=== PATIENT | male | born 1960 | race Caucasian/White ===

== ENCOUNTER 2020-11-07 19:38 | Emergency (ER) | payer MEDICARE ==
[2020-11-07 21:30] LABS: BASOPHIL 0.7 % (0-2); EOSINOPHIL 1.8 % (0-5); HCT 42.1 % (42.0-52.0); HGB 13.8 g/dl (13.2-18.0); LYMPHOCYTE 36.9 % (15-48); MCH 29.7 pg (25.0-31.0); MCHC 32.8 g/dL (32.0-36.0); MCV 90.5 fL (78.0-100.0); MONOCYTE 6.4 % (0-12); MPV 8.2 fL (6.0-9.5); NRBC 0; PLT 266 K/uL (150-400); RBC 4.65 M/uL (4.70-6.00); RDW 12.7 % (11.5-14.0); WBC 5.7 K/uL (4.0-10.5)
[2020-11-07 21:53] LABS: ALBUMIN 3.9 g/dL (3.4-5.0); BILIRUBIN - TOTAL 0.4 mg/dL (0.2-1.0); BUN/CREAT RATIO (CALC) 14.5 RATIO; C-REACTIVE PROTEIN 0.4 mg/dL (<=0.90); CREATININE 0.83 mg/dL (0.67-1.17); GLOBULIN (CALCULATION) 3.3 g/dL; POTASSIUM 4.2 mmol/L (3.5-5.1); TOTAL PROTEIN 7.2 g/dL (6.4-8.2)
[2020-11-07] MEDS ORDERED: FLEXERIL5 MG PO (22:10)
[2020-11-07] MEDS ORDERED: MEDROL 4MG DOSEP4 MG PO (22:10)
== END 2020-11-07 22:45 | disposition home or self-care (01) ==
LOC: FER 19:38
PROVIDERS: Emergency Medicine
DX: M54.5 Low back pain (principal)
CPT/HCPCS: 36415; 72131; 80053; 85025; 86140; J1170; J2405; J2930

== ENCOUNTER 2022-01-09 16:04 | Emergency (ER) | payer MEDICARE ==
[~2022-01-09 16:04] MED LIST: FLEXERIL5 MG PO; MEDROL 4MG DOSEP4 MG PO
== END 2022-01-09 17:00 | disposition home or self-care (01) ==
LOC: FER 16:04
DX: S01.81XA Laceration without foreign body of other part of head, initial encounter (principal); Z87.891 Personal history of nicotine dependence; Z98.890 Other specified postprocedural states; W22.8XXA Striking against or struck by other objects, initial encounter; Y92.009 Unspecified place in unspecified non-institutional (private) residence as the place of occurrence of the external cause